=== PATIENT | male | born 1965 | race African-American/Black ===

== ENCOUNTER 2021-06-19 11:28 | Inpatient (IN) | payer SELFPAY ==
--- OUTSIDE RECORDS SUMMARY | 2021-06-19 11:30 | XMS REPORT | Continuity of Care Document ---
:1965 Author Organization [facility] t Address [address] [place] [address] [place] [address] Care Team Providers Name Role Phone Unavailable Unavailable Unavailable Problems This patient has no known problems. Allergies, Adverse Reactions, Alerts Allergy Allergy Status Severity Reaction(s) Onset Inactive Treating Comm ents Source Name Type Date Date Clinician NO KNOWN Drug Active [facility] ALLERGIE Class [facility] Medications This patient has no known medications. Procedures This patient has no known procedures. Encounters Start End Encounter Admission Attending Care Care Encounter Source Date/Time Date/Time Type Type Clinicians Facility Department ID 2020-12-04 2020-12-04 [id number] 06 [facility] 13:40:00 13:40:00 [facility] Results This patient has no known results.
[2021-06-19 12:51] LABS: Lymphocytes % 24.3 % (15.3-44.8); MPV 9.7 fL (7.6-11.3)
[2021-06-19 12:54] LABS: Protime INR 1.03
--- NOTE | 2021-06-19 13:00 | RAD REPORT ---
EXAM DESCRIPTION: RAD - Chest Single View - 06/19/2021 12:53 pm CLINICAL HISTORY: dizziness Chest pain. COMPARISON: No comparisons FINDINGS: Portable technique limits examination quality. The lungs are grossly clear. The heart is mildly enlarged. No displaced fractures.
[2021-06-19 13:02] LABS: Urine Blood Trace-intact (Negative); Urine Glucose Negative (Negative); Urine Protein 2+ (Negative); Urine pH 8.5 (5.0-7.0)
[2021-06-19] MEDS ORDERED: ONDANSETRON 4 MG/2 ML VIAL ONE (13:05)
[2021-06-19] MEDS ORDERED: NA CHLORIDE 0.9% 1,000 ML ONE (13:05)
[2021-06-19 13:16] LABS: ALT/SGPT 69 U/L (12-78); AST/SGOT 74 U/L (15-37); Albumin 3.1 g/dL (3.4-5.0); Alkaline Phosphatase 69 U/L (45-117); BUN Blood Urea Nitrogen 11 mg/dL (7-18); Bicarbonate 28 mmol/L (21-32); Bilirubin Direct 0.2 mg/dL (0-0.2); Bilirubin Total 0.6 mg/dL (0.2-1.0); Glucose Level 97 mg/dL (74-106); Magnesium 2.3 mg/dL (1.8-2.4); NT PRO-BNP 336 pg/mL (<125); Potassium 4.4 mmol/L (3.5-5.1); Protein, Total 8.4 g/dL (6.4-8.2); Sodium Level 138 mmol/L (136-145)
[2021-06-19 13:29] LABS: Urine Bacteria <20 /HPF (NONE SEEN); Urine RBC <5 /HPF (NONE SEEN)
[2021-06-19] MEDS ORDERED: MECLIZINE HCL 12.5 MG TAB ONE (13:35)
--- NOTE | 2021-06-19 14:02 | RAD REPORT ---
EXAM DESCRIPTION: CT - Head Brain Wo Cont - 06/19/2021 1:42 pm CLINICAL HISTORY: DIZZINESS Headache, drowsiness COMPARISON: No comparisons TECHNIQUE: All CT scans are performed using dose optimization technique as appropriate and may inclu de automated exposure control or mA/KV adjustment according to patient size. FINDINGS: No intracranial hemorrhage, hydrocephalus or extra-axial fluid collection.No areas of brai n edema or evidence of midline shift. The paranasal sinuses and mastoids are clear. The calvarium is intact. IMPRESSION: No acute intracranial abnormality.
--- NOTE | 2021-06-19 14:10 | EDPHYS ---
Physician Documentation [facility] Name: Srikanth Alexander Age: 56 yrs Sex: Male : 1965 Arrival Date: 06/19/2021 Time: 11:32 Bed 25 Private MD: None, None ED Physician Young Palafox HPI: 06/19 12:45 This 56 yrs old Black Male presents to ER via Ambulatory with complaints of Dizziness. cp 12:45 The patient presents with dizziness, lightheadedness. Onset: The symptoms/episode cp began/occurred today. Context: nausea and vomiting yesterday. Associated signs and symptoms: Pertinent negatives: abdominal pain, chest pain, combativeness, confusion, diaphoresis, focal weakness, palpitations, shortness of breath, syncope. Patient's baseline: Neuro: alert and fully oriented, Motor: no deficits, Ambulation: walks without assistance, Speech: normal. Historical: - Allergies: 11:35 No Known Allergies; jd3 - Home Meds: 11:35 None [Active]; jd3 - PMHx: 11:35 None; jd3 - PSHx: 11:35 Appendectomy; left ankle; jd3 - Immunization history:: Adult Immunizations up to date, Client reports receiving the 2nd dose of the Covid vaccine, Flu vaccine is not up to date. - Social history:: Smoking status: Patient reports the use of cigarette tobacco products, smokes one-half pack cigarettes per day. ROS: 12:50 Eyes: Negative for injury, pain, redness, and discharge. cp 12:50 Constitutional: Negative for fever, poor PO intake. 12:50 Cardiovascular: Negative for chest pain. 12:50 Respiratory: Negative for cough, shortness of breath, wheezing. 12:50 Abdomen/GI: Positive for nausea and vomiting, Negative for abdominal pain, diarrhea, constipation. 12:50 Neuro: Positive for dizziness, Negative for altered mental status, headache, loss of consciousness, syncope, weakness. 12:50 All other systems are negative. Exam: 12:55 Constitutional: The patient appears in no acute distress, alert, awake, cp non-diaphoretic, non-toxic, well developed, well nourished. 12:55 Head/Face: Normocephalic, atraumatic. cp 12:55 Eyes: Periorbital structures: appear normal, Pupils: equal, round, and reactive to light and accomodation, Extraocular movements: intact throughout, Conjunctiva: normal, no exudate, no injection, Lids and lashes: appear normal, bilaterally. 12:55 ENT: External ear(s): are unremarkable, Nose: is normal, Mouth: Lips: moist, Oral mucosa: pink and intact, moist, Posterior pharynx: Airway: no evidence of obstruction, patent. 12:55 Neck: ROM/movement: is normal, is supple, without pain, no range of motions limitations. 12:55 Chest/axilla: Inspection: normal, Palpation: is normal, no crepitus, no tenderness. 12:55 Cardiovascular: Rate: normal, Rhythm: regular, Edema: is not appreciated, JVD: is not appreciated. 12:55 Respiratory: the patient does not display signs of respiratory distress, Respirations: normal, no use of accessory muscles, no retractions, labored breathing, is not present, Breath sounds: are clear throughout, no decreased breath sounds, no stridor, no wheezing. 12:55 Abdomen/GI: Inspection: abdomen appears normal, Bowel sounds: active, all quadrants, Palpation: abdomen is soft and non-tender, in all quadrants. 12:55 Back: pain, is absent, ROM is normal. 12:55 Neuro: Orientation: to person, place \\T\\ time. Mentation: is normal, Cerebellar function: is grossly normal, Motor: moves all fours, strength is normal, Sensation: is normal. 13:20 ECG was reviewed by the Attending Physician. cp Vital Signs: 11:36 BP 167 / 87; Pulse 75; Resp 18 S; Temp 97.5(TE); Pulse Ox 99% on R/A; Weight 74.84 kg jd3 (R); Height 5 ft. 7 in. (170.18 cm) (R); Pain 0/10; 13:23 BP 156 / 86; Pulse 55; Resp 18; Pulse Ox 100% on R/A; ic1 15:44 BP 157 / 94; Pulse 63; Resp 16; Pulse Ox 98% on R/A; ic1 18:27 BP 154 / 90; Pulse 65; Resp 18; Pulse Ox 100% on R/A; ic1 11:36 Body Mass Index 25.84 (74.84 kg, 170.18 cm) jd3 MDM: 12:31 Patient medically screened. 14:10 Data reviewed: vital signs, nurses notes, lab test result(s), EKG, radiologic studies, cp CT scan, plain films. 14:10 Test interpretation: by ED physician or midlevel provider: ECG, plain radiologic cp studies. Physician consultation: Joseph Morse was called at 14:05, was contacted at 14:05, regarding admission, to the telemetry unit. patient's condition. 06/19 12:39 Order name: Basic Metabolic Panel 06/19 12:39 Order name: CBC with Diff 06/19 12:39 Order name: LFT's; Complete Time: 13:26 06/19 13:26 Interpretation: Normal except: AST 74; TP 8.4; ALB 3.1; GLOB 5.3; A/G 0.6. 06/19 12:39 Order name: Magnesium; Complete Time: 13:26 06/19 12:39 Order name: NT PRO-BNP; Complete Time: 13:26 06/19 12:39 Order name: PT-INR; Complete Time: 13:07 06/19 12:39 Order name: Troponin HS; Complete Time: 13:26 06/19 13:26 Interpretation: Abnormal: Troponin HS 142.70. 06/19 12:39 Order name: Urine Microscopic Only; Complete Time: 14:03 06/19 12:39 Order name: Basic Metabolic Panel; Complete Time: 13:26 [facility] 06/19 12:39 Order name: CBC with Automated Diff; Complete Time: 13:07 [facility] 06/19 13:02 Order name: Urine Dipstick-Ancillary; Complete Time: 13:07 [facility] 06/19 13:28 Order name: COVID-19 SARS RT PCR (Document "Date of Onset" if Symptomatic) 06/20 04:04 Order name: Lipid Profile [facility] 06/20 04:04 Order name: Basic Metabolic Panel [facility] 06/19 12:39 Order name: XRAY Chest (1 view); Complete Time: 13:07 06/19 12:39 Order name: EKG; Complete Time: 12:39 06/19 12:39 Order name: EKG - Nurse/Tech; Complete Time: 07:03 06/19 12:39 Order name: IV Saline Lock; Complete Time: 12:50 cp 06/19 12:39 Order name: Labs collected and sent; Complete Time: 12:50 cp 06/19 12:39 Order name: O2 Per Protocol; Complete Time: 12:49 cp 06/19 13:27 Order name: CT Head Brain wo Cont; Complete Time: 14:03 cp 06/20 04:13 Order name: CBC with Automated Diff EDMS 06/20 09:04 Order name: Diet Heart Healthy; Complete Time: 09:05 ss 06/20 10:13 Order name: Troponin High Sensitivity EDMS 06/19 12:39 Order name: O2 Sat Monitoring; Complete Time: 12:49 cp 06/19 12:39 Order name: Urine Dipstick-Ancillary (obtain specimen); Complete Time: 13:14 cp EC:20 Rate is 57 beats/min. Rhythm is regular. DC interval is normal. QRS interval is cp prolonged at 138 msec. QT interval is normal. T waves are Inverted in lead aVR. Interpreted by me. Reviewed by me. Administered Medications: 13:16 Drug: Zofran (Ondansetron) 4 mg Route: IVP; Site: left antecubital; ic1 13:16 Drug: NS 0.9% 1000 ml Route: IV; Rate: 1 bolus; Site: left antecubital; ic1 13:37 Drug: Meclizine 25 mg Route: PO; ic1 14:08 CANCELLED (Physician Discretion): Lovenox (enoxaparin) 1 mg/kg Sub-Q once cp 14:28 Drug: Aspirin Chewable Tablet 324 mg Route: PO; ic1 Disposition Summary: 06/19/21 14:09 Hospitalization Ordered Hospitalization Status: Observation cp Provider: Joseph Morse cp Condition: Stable cp Problem: new cp Symptoms: have improved cp Bed/Room Type: Standard cp Location: Telemetry/MedSurg (Inpatient)(06/20/21 15:19) Room Assignment: 216(06/20/21 15:19) Diagnosis - Dizziness and giddiness cp - Nausea with vomiting, unspecified cp Forms: - Medication Reconciliation Form cp - SBAR form cp Addendum: 06/26/2021 18:57 Co-signature as Attending Physician, Young aquino a2 Signatures: Dispatcher [employer] EDMuna Roberts Alena, RN RN ss Efren Gonzalez PA PA cp Sree Brito RN RN jd3 Young Palafox MD MD ma2 Rachelle Vega RN RN ic1 Corrections: (The following items were deleted from the chart) 06/19 11:36 11:35 PSHx: None; jd3 jd3 14:08 14:03 Lovenox (enoxaparin) 1 mg/kg Sub-Q once ordered. cp cp 17:12 14:09 Telemetry/MedSurg (observation) cp bd 17:12 14:09 cp bd 17:48 14:07 ECG was reviewed by the Attending Physician. cp cp 06/20 07:03 06/19 12:39 Cardiac monitoring ordered. cp ll3 06/20 15:19 06/19 17:12 [facility] ER HOLD bd 06/20 15:19 06/19 17:12 ERHOLD- bd 06/21 17:51 06/19 13:20 ECG was reviewed by the Attending Physician. cp cp 06/21 17:51 06/19 13:20 Rate is 57 beats/min. Rhythm is regular. DC interval is normal. QRS cp interval is prolonged at 138 msec. QT interval is normal. T waves are Inverted in lead aVR. Interpreted by me. Reviewed by me. cp 06/21 17:53 06/20 12:45 This 56 yrs old Black Male presents to ER via Ambulatory with complaints of cp Dizziness. cp 06/21 16:06/20 12:50 Constitutional: Negative for fever, poor PO intake, cp cp 06/21 16:54 06/20 12:50 Cardiovascular: Negative for chest pain, cp cp 06/21 16:54 06/20 12:50 Respiratory: Negative for cough, shortness of breath, wheezing, cp cp 06/21 17:54 06/20 12:50 Abdomen/GI: Positive for nausea and vomiting, Negative for abdominal pain, cp diarrhea, constipation, cp 06/21 16:06/20 12:50 Neuro: Positive for dizziness, Negative for altered mental status, cp headache, loss of consciousness, syncope, weakness, cp 06/21 16:54 06/20 12:50 Eyes: Negative for injury, pain, redness, and discharge, cp cp 06/21 16:06/20 12:50 All other systems are negative, cp cp 06/21 17:06/20 13:20 Rate is 57 beats/min. Rhythm is regular. DC interval is normal. QRS cp interval is prolonged at 138 msec. QT interval is normal. T waves are Inverted in lead aVR. Interpreted by me. Reviewed by me. cp 06/21 17:06/20 13:20 ECG was reviewed by the Attending Physician. cp cp
--- NOTE | 2021-06-19 14:10 | ER ---
Nurse's Notes [facility] Name: Srikanth Alexander Age: 56 yrs Sex: Male : 1965 Arrival Date: 06/19/2021 Time: 11:32 Bed 25 Private MD: None, None Diagnosis: Dizziness and giddiness;Nausea with vomiting, unspecified Presentation: 06/19 11:34 Chief complaint: Patient states: "I started with vomiting yesterday and having some jd3 dizziness today. it is off and on since yesterday.". Coronavirus screen: At this time, the client does not indicate any symptoms associated with coronavirus-19. Ebola Screen: No symptoms or risks identified at this time. Initial Sepsis Screen: Does the patient meet any 2 criteria? No. Patient's initial sepsis screen is negative. Does the patient have a suspected source of infection? No. Patient's initial sepsis screen is negative. Risk Assessment: Do you want to hurt yourself or someone else? Patient reports no desire to harm self or others. Onset of symptoms was June 19, 2021. 11:34 Method Of Arrival: Ambulatory jd3 11:34 Acuity: MARVA 3 jd3 Historical: - Allergies: 11:35 No Known Allergies; jd3 - Home Meds: 11:35 None [Active]; jd3 - PMHx: 11:35 None; jd3 - PSHx: 11:35 Appendectomy; left ankle; jd3 - Immunization history:: Adult Immunizations up to date, Client reports receiving the 2nd dose of the Covid vaccine, Flu vaccine is not up to date. - Social history:: Smoking status: Patient reports the use of cigarette tobacco products, smokes one-half pack cigarettes per day. Screenin:34 Abuse screen: Denies threats or abuse. Denies injuries from another. Nutritional ic1 screening: No deficits noted. Tuberculosis screening: No symptoms or risk factors identified. Fall Risk None identified. Assessment: 12:34 General: Appears in no apparent distress. comfortable, Behavior is calm, cooperative. ic1 Pain: Denies pain. Neuro: No deficits noted. Cardiovascular: No deficits noted. Respiratory: No deficits noted. GI: Reports nausea, vomiting, Patient currently denies abdominal pain, constipation, diarrhea. : No deficits noted. EENT: No deficits noted. Derm: No deficits noted. Musculoskeletal: No deficits noted. 15:46 Reassessment: Patient appears in no apparent distress at this time. No changes from ic1 previously documented assessment. Patient is alert, oriented x 3, equal unlabored respirations, skin warm/dry/pink. Hospitalist at pt's bedside. Vital Signs: 11:36 BP 167 / 87; Pulse 75; Resp 18 S; Temp 97.5(TE); Pulse Ox 99% on R/A; Weight 74.84 kg jd3 (R); Height 5 ft. 7 in. (170.18 cm) (R); Pain 0/10; 13:23 BP 156 / 86; Pulse 55; Resp 18; Pulse Ox 100% on R/A; ic1 15:44 BP 157 / 94; Pulse 63; Resp 16; Pulse Ox 98% on R/A; ic1 18:27 BP 154 / 90; Pulse 65; Resp 18; Pulse Ox 100% on R/A; ic1 11:36 Body Mass Index 25.84 (74.84 kg, 170.18 cm) jd3 ED Course: 11:32 Patient arrived in ED. as 11:32 None, None is Private Physician. as 11:35 Triage completed. jd3 11:36 Arm band placed on. jd3 12:21 Efren Gonzalez PA is PHCP. cp 12:21 Young Palafox MD is Attending Physician. cp 12:27 Rachelle Vega, KALEIGH is Primary Nurse. ic1 12:34 Patient has correct armband on for positive identification. Bed in low position. Call ic1 light in reach. Side rails up X2. 12:34 Inserted saline lock: 20 gauge in left antecubital area, using aseptic technique. Blood ic1 collected. 12:49 Basic Metabolic Panel Sent. ic1 12:49 CBC with Automated Diff Sent. ic1 12:49 Troponin HS Sent. ic1 12:49 NT PRO-BNP Sent. ic1 12:49 Magnesium Sent. ic1 12:49 LFT's Sent. ic1 12:53 XRAY Chest (1 view) In Process Unspecified. EDMS 13:14 Urine Microscopic Only Sent. ic1 13:42 CT Head Brain wo Cont In Process Unspecified. EDMS 14:09 Joseph Morse is Hospitalizing Provider. cp 18:27 Pulse ox on. NIBP on. ic1 18:32 Door closed. Visitors limited. Lights dimmed. Warm blanket given. Diet tray given. ic1 06/20 07:03 Basic Metabolic Panel Sent. ll3 07:03 CBC with Diff Sent. ll3 Administered Medications: 06/19 13:16 Drug: Zofran (Ondansetron) 4 mg Route: IVP; Site: left antecubital; ic1 13:16 Drug: NS 0.9% 1000 ml Route: IV; Rate: 1 bolus; Site: left antecubital; ic1 13:37 Drug: Meclizine 25 mg Route: PO; ic1 14:08 CANCELLED (Physician Discretion): Lovenox (enoxaparin) 1 mg/kg Sub-Q once cp 14:28 Drug: Aspirin Chewable Tablet 324 mg Route: PO; ic1 Outcome: 14:09 Decision to Hospitalize by Provider. cp 06/20 18:08 Patient left the ED. ss Signatures: Dispatcher [employer] EDME Linda Ferguson Shelby, RN RN Efren Gonzalez PA PA cp Sree Brito RN RN jSalvatore Perez RN RN ll3 Rachelle Vega RN RN ic1 Corrections: (The following items were deleted from the chart) 06/19 11:36 11:35 PSHx: None; jd3 jd3 11:37 11:34 Chief complaint: Patient states: "I started with vomiting yesterday and having jd3 some dizziness today. it is off and on." jd3 18:33 18:27 Door closed. Visitors limited. Lights dimmed. Warm blanket given. Diet tray ic1 given. PO fluids given. Pt moved into a stretcher for comfort. States she feel much better after repositioning. ic1
[2021-06-19] MEDS ORDERED: ASPIRIN 81 MG CHEWABLE TABLET ONE (14:13)
--- NOTE | 2021-06-19 17:18 | P.HP ---
Certification for Inpatient Patient admitted to: Observation With expected LOS: <2 Midnights Practitioner: I am a practitioner with admitting privileges, knowledge of patient current condition, hospital course, and medical plan of care. Services: Services provided to patient in accordance with Admission requirements found in Title 42 Section 412.3 of the Code of Federal Regulations Patient History Date of Service: 06/19/21 Reason for admission: Nausea and vomiting History of Present Illness: -year-old gentleman with no known past medical history presented to the emergency department with a complaint of nausea and vomiting which started last night. Patient states he ate a meal of noodles and pork chops at his friend's house. Several hours later experienced nausea and he started vomiting. He vomited a few times yesterday and a couple of times today at work. He presented to the emergency department where blood work is unremarkable except elevated troponin. Patient reports recent ED fatigability over the past few weeks. EKG shows no ischemic changes. Chest x-ray shows no acute changes. His sister has a history of carotid artery disease, no known heart disease in the family. He states that the nausea and vomiting have resolved. Patient is hospitalized for further management. - Past Medical/Surgical History -: None -: Ankle surgery - Social History Smoking Status: Current every day smoker Alcohol use: Yes CD- Drugs: No Place of Residence: Home Review of Systems Other: Patient denied any diarrhea, he denied any abdominal pain, he denied any palpitation, he denied shortness of breath at rest. Except as documented, all other systems reviewed and negative. Physical Examination - Physical Exam General: Alert, In no apparent distress, Oriented x3 HEENT: PERRLA, Mucous membr. moist/pink, Sclerae nonicteric Neck: Supple, JVD not distended Respiratory: Clear to auscultation bilaterally, Normal air movement Cardiovascular: No edema, Regular rate/rhythm, Normal S1 S2, No murmurs Capillary refill: <2 Seconds Gastrointestinal: Normal bowel sounds, Soft and benign, Non-distended, No tenderness Musculoskeletal: No swelling, No tenderness Integumentary: No rashes, No erythema, No cyanosis Neurological: Normal speech, Normal strength at 5/5 x4 extr, Cranial nerves 3-12 intact Lymphatics: No axilla or inguinal lymphadenopathy - Studies Laboratory Data (last 24 hrs) 06/19/21 12:41: PT 11.9, INR 1.03 06/19/21 12:41: WBC 4.00 L, Hgb 14.3, Hct 44.0, Plt Count 177 06/19/21 12:41: Sodium 138, Potassium 4.4, BUN 11, Creatinine 0.96, Glucose 97, Magnesium 2.3, Total Bilirubin 0.6, AST 74 H, ALT 69, Alkaline Phosphatase 69 Assessment and Plan - Problems (Diagnosis) (1) Elevated troponin Current Visit: Yes Status: Acute (2) Nausea and vomiting Current Visit: Yes Status: Acute (3) Food poisoning Current Visit: Yes Status: Acute - Plan Place patient under observation. Continue to trend troponin Will cover with full dose Lovenox. Obtain echocardiogram Cardiology consult. Patient may benefit for stress test. Antiemetics as needed for nausea and vomiting. Hydrate with IV fluid. Monitor and optimize electrolytes. - Advance Directives Does patient have a Living Will: No Does patient have a Durable POA for Healthcare: No
[2021-06-20] MEDS ORDERED: NITROGLYCERIN 0.4 MG/TAB SL PRN (02:45)
[2021-06-20] MEDS: NA CHLORIDE 0.9% 1,000 ML IV SCH ×2 (02:45→16:05)
[2021-06-20] MEDS: METOPROLOL TAR 50 MG TAB PO SCH ×3 (02:45→21:32)
[2021-06-20] MEDS ORDERED: ENOXAPARIN 80 MG/0.8 ML SQ SCH (02:45)
[2021-06-20] MEDS ORDERED: ENOXAPARIN 80 MG/0.8 ML SQ ONE ×3 (03:00→17:26)
[2021-06-20] MEDS ORDERED: METOPROLOL TAR 25 MG TAB ONE ×2 (03:34→09:22)
[2021-06-20] MEDS ORDERED: NA CHLORIDE 0.9% 1,000 ML ONE (03:35)
[2021-06-20 03:51] LABS: Absolute Lymphocytes (CBC) 1.3 K/uL (0.7-4.9); Hematocrit 41.2 % (39.6-49.0); Lymphocytes % 32.7 % (15.3-44.8); MPV 9.6 fL (7.6-11.3); RBC Red Blood Cell Count 4.38 M/uL (4.33-5.43)
[2021-06-20 04:04] LABS: BUN Blood Urea Nitrogen 15 mg/dL (7-18); Bicarbonate 27 mmol/L (21-32); Glucose Level 102 mg/dL (74-106); Potassium 4.1 mmol/L (3.5-5.1); Sodium Level 140 mmol/L (136-145)
[2021-06-20] MEDS: ASPIRIN EC 81 MG TAB PO SCH (09:00)
[2021-06-20] MEDS ORDERED: ASPIRIN 81 MG CHEWABLE TABLET ONE (09:22)
--- NOTE | 2021-06-20 14:23 | ECHO ---
HEIGHT: 5 ft 7 in WEIGHT: 164 lb 15.903 oz DATE OF STUDY: 06/20/[address]: nadeen diza 2-DIMENSIONAL: YES M.MODE: YES DOPPLER: YES COLOR FLOW: YES TDS: PORTABLE: DEFINITY: BUBBLE STUDY: DIAGNOSIS: ELEVATED TROPONIN CARDIAC HISTORY: CATHERIZATION: SURGERY: PROSTHETIC VALVE: PACEMAKER: MEASUREMENTS (cm) DIASTOLIC (NORMALS) SYSTOLIC (NORMALS) IVSd 1.1 (0.6-1.2) LA Diam 4.2 (1.9-4.0) LVEF 55-60% LVIDd 5.7 (3.5-5.7) LVIDs 4.1 (2.0-3.5) %FS 28% LVPWd 1.0 (0.6-1.2) Ao Diam 2.8 (2.0-3.7) 2 DIMENSIONAL ASSESSMENT: RIGHT ATRIUM: NORMAL LEFT ATRIUM: ENLARGED RIGHT VENTRICLE: NORMAL LEFT VENTRICLE: NORMAL TRICUSPID VALVE: MODERATE TRICUSPID REGURGITATION MITRAL VALVE: MODERATE MITRAL REGURGITATION PULMONIC VALVE: MILD PULMONARY INSUFFIENCY AORTIC VALVE: NORMAL PERICARDIAL EFFUSION: NONE AORTIC ROOT: NORMAL LEFT VENTRICULAR WALL MOTION: NORMAL DOPPLER/COLOR FLOW: SEE BELOW COMMENTS: NORMAL LEFT VENTRICULAR EJECTION FRACTION 55-60% WITH NORMAL WALL MOTION. MODERATE TRICUSPID REGURGITATION. RIGHT VENTRICULAR SYSTOLIC PRESSURE OF 40-45 mmHg. MODERATE TO SEVERE MITRAL REGURGITATION. LEFT ATRIAL ENLARGEMENT. TECHNOLOGIST: MICHELLE MARTINEZ
[2021-06-20] MEDS: ENOXAPARIN 80 MG/0.8 ML SQ SCH (17:25)
--- NOTE | 2021-06-20 17:53 | P.PN ---
Subjective Date of Service: 06/20/21 Chief Complaint: Nausea and vomiting No new complaint. Troponin trended down. He denies any nausea. Physical Examination - Vital Signs Temperature: 98 F Blood Pressure: 152/82 Pulse: 56 Respirations: 19 Pulse Ox (%): 100 - Physical Exam General: Alert, In no apparent distress, Oriented x3 HEENT: Mucous membr. moist/pink, Sclerae nonicteric Neck: JVD not distended Respiratory: Clear to auscultation bilaterally, Normal air movement Cardiovascular: No edema, Regular rate/rhythm, Normal S1 S2 Gastrointestinal: Normal bowel sounds, Soft and benign, Non-distended, No tenderness Musculoskeletal: No swelling, No erythema Integumentary: No rashes, No erythema, No cyanosis Neurological: Normal strength at 5/5 x4 extr, Cranial nerves 3-12 intact - Studies Laboratory Data (last 24 hrs) 06/20/21 03:18: Sodium 140, Potassium 4.1, BUN 15, Creatinine 0.97, Glucose 102 06/20/21 03:18: WBC 3.80 L, Hgb 13.5 L, Hct 41.2, Plt Count 159 06/20/21 03:18: Triglycerides 91, Cholesterol 162, HDL Cholesterol 68 H, Cholesterol/HDL Ratio 2.38 Assessment And Plan - Current Problems (Diagnosis) (1) Elevated troponin Current Visit: Yes Status: Acute (2) Nausea and vomiting Current Visit: Yes Status: Acute (3) Food poisoning Current Visit: Yes Status: Acute - Plan Troponin trended down. On full dose Lovenox for possible NSTEMI given no known past medical history. Echocardiogram demonstrates moderate to severe mitral regurgitation. Awaiting Cardiology input. Continue metoprolol and aspirin. Discontinue IV fluid. Monitor and optimize electrolytes.
--- NOTE | 2021-06-20 19:05 | CON ---
Date of Consultation: 06/20/2021 Reason For Consultation: Chest pain. History Of Present Illness: This is a middle-aged male, who presented to the emergency room with cl sea and vomiting as well as having chest pain on activities and increased fatigue and tiredness. At present time completely asymptomatic. No chest pain. Past Medical History: None. Medications: None. Allergies: NO KNOWN DRUG ALLERGIES. Family History: No mature coronary artery disease or cancer. Social History: He is 1 pack per day smoker. Does not drink or use any drugs. Review of Systems: All systems reviewed and they were negative except as mentioned in the HPI. Physical Examination: Vital Signs: Reviewed. Head and Neck Exam: Pupils are equal and reactive to light. Intact eye movements. No JVD. No cerv ical lymphadenopathy. Neck is supple. Thyroid is not enlarged. Lungs: Clear to auscultation. No rhonchi, rales, or crackles. No accessory muscle use. Heart: Regular rate and rhythm. No extra sounds. Abdomen: Soft and nontender. Bowel sounds positive. No organomegaly. No masses or hernia. No rig idity or rebound. Extremities: No edema, clubbing, or cyanosis. Intact pulses. Skin: No rash. Neurologic: Alert, awake, and oriented x3. No acute focal deficits appreciated. Investigations: White blood cell count is 3.8, hemoglobin 13.5. His creatinine is 0.9. Troponin in itially 142 and then down to 59. Assessment And Plan: 1.Elevated troponin with chest pain. This could be an indication of [id number] myocardial inf arction. Echo was done, showed normal ejection fraction, no wall motion abnormalities. I recommend exercise nuclear stress test to be done to further evaluate the need to do coronary angiogram. 2.Dizziness. Blood pressure is good. Echo is good. We will monitor and we will do ischemia workup as above with a stress test. SR/MODL Voice ID: [id number] Report ID: [id number]
[2021-06-21] MEDS ORDERED: HYDRALAZINE HCL 20 MG/ML VIAL IV PRN (01:14)
[2021-06-21] MEDS: ENOXAPARIN 80 MG/0.8 ML SQ SCH (05:18)
[2021-06-21] MEDS ORDERED: REGADENOSON 0.4 MG/5 ML SYR IV ONE (08:26)
[2021-06-21] MEDS: ASPIRIN EC 81 MG TAB PO SCH (09:00)
[2021-06-21] MEDS: METOPROLOL TAR 50 MG TAB PO SCH ×2 (09:00→20:56)
--- NOTE | 2021-06-21 10:29 | RAD REPORT ---
EXAM DESCRIPTION: NM - Rest Stress Cardiac Imaging - 06/21/2021 10:22 am CLINICAL HISTORY: Elevated troponin Chest pain. COMPARISON: No comparisons TECHNIQUE: The patient was administered approximately 10mCi of Tc 99m Sestamibi prior to resting SPE CT imaging of the heart. The patient was then administered approximately 30 mCi of Tc 99m Sestamibi f ollowing exercise or pharmacologic stress. Multiplanar SPECT images were reviewed. FINDINGS: Moderate sized area of moderate stress-induced ischemia is seen along the lateral wall. Sm all amount of scar tissue is suspected LV apex. The end diastolic volume is 213 ml, the end systolic volume is 132 ml, and the ejection fraction is 3 8 %. IMPRESSION: Moderate stress-induced ischemia involving the lateral wall suspected.
--- NOTE | 2021-06-21 15:01 | P.PN ---
Subjective Date of Service: 06/21/21 Chief Complaint: Nausea and vomiting Patient has no complaint. Nuclear stress test done today shows moderate stress-induced ischemia. Physical Examination - Vital Signs Temperature: 97.5 F Blood Pressure: 167/74 Pulse: 59 Respirations: 18 Pulse Ox (%): 98 - Physical Exam General: Alert, In no apparent distress, Oriented x3 HEENT: Mucous membr. moist/pink Neck: JVD not distended Respiratory: Clear to auscultation bilaterally, Normal air movement Cardiovascular: No edema, Regular rate/rhythm, Normal S1 S2 Gastrointestinal: Soft and benign, Non-distended Musculoskeletal: No swelling Integumentary: No rashes Neurological: Normal strength at 5/5 x4 extr Assessment And Plan - Current Problems (Diagnosis) (1) Elevated troponin Current Visit: Yes Status: Acute (2) Nausea and vomiting Current Visit: Yes Status: Acute (3) Food poisoning Current Visit: Yes Status: Acute (4) Coronary artery disease Current Visit: Yes Status: Acute - Plan Echocardiogram demonstrates moderate to severe mitral regurgitation. Nuclear stress test report moderate stress-induced ischemia. Dr. Livingston informed of the stress test result. Keep n.p.o. in case cardiac catheterization may be done today. Continue metoprolol and aspirin. Monitor and optimize electrolytes.
[2021-06-22] MEDS: METOPROLOL TAR 50 MG TAB PO SCH ×2 (09:00→21:21)
[2021-06-22] MEDS: ASPIRIN EC 81 MG TAB PO SCH (09:41)
--- NOTE | 2021-06-22 12:28 | P.PN ---
Subjective Date of Service: 06/22/21 Chief Complaint: Nausea and vomiting Patient has no complaint. Physical Examination - Vital Signs Temperature: 98.3 F Blood Pressure: 129/72 Pulse: 55 Respirations: 16 Pulse Ox (%): 100 - Physical Exam General: In no apparent distress, Oriented x3 HEENT: Mucous membr. moist/pink Neck: JVD not distended Respiratory: Clear to auscultation bilaterally, Normal air movement Cardiovascular: No edema, Regular rate/rhythm, Normal S1 S2 Gastrointestinal: Soft and benign, Non-distended Musculoskeletal: No swelling Integumentary: No rashes, No erythema Neurological: Normal strength at 5/5 x4 extr Assessment And Plan - Current Problems (Diagnosis) (1) Elevated troponin Current Visit: Yes Status: Acute (2) Nausea and vomiting Current Visit: Yes Status: Acute (3) Food poisoning Current Visit: Yes Status: Acute (4) Coronary artery disease Current Visit: Yes Status: Acute - Plan Echocardiogram demonstrates moderate to severe mitral regurgitation. Nuclear stress test report moderate stress-induced ischemia. Dr. Livingston informed of the stress test result. Dr. Livingston recommend cardiac catheterization on Thursday. Patient is willing to stay till Thursday to have the procedure done. Continue metoprolol and aspirin. Resume full dose Lovenox. Statins. Monitor and optimize electrolytes.
[2021-06-22] MEDS: ENOXAPARIN 80 MG/0.8 ML SQ SCH ×2 (13:19→21:22)
[2021-06-22] MEDS: ATORVASTATIN 20 MG TAB PO SCH (21:22)
--- NOTE | 2021-06-22 21:30 | PN ---
Date of Progress Note: 06/22/2021 Subjective: Seen by bedside, he is pain free. As patient had elevated troponin on presentation and stress test was done and showed a moderate size of stress-induced ischemia along the lateral wall. Review of Systems: No chest pain, shortness of breath, orthopnea, cough. No nausea, vomiting, diarrhea. No abdominal p ain. All other systems reviewed, they were negative. Objective: Vital Signs: Reviewed. Head and Neck: Pupils are equal, reactive to light. Intact eye movements. No JVD. No cervical lym phadenopathy. Neck supple. Thyroid is not enlarged. Lungs: Clear to auscultation bilaterally. No rhonchi, rales, or crackles. No accessory muscle use. Heart: Regular rate and rhythm. No extra sounds. Abdomen: Soft, nontender. Bowel sounds positive. No organomegaly. No masses or hernia. No rigidi ty or rebound. Extremities: No edema, clubbing, cyanosis. Intact pulses. Skin: No rashes. Neurologic: Alert, awake, oriented x3. No acute focal deficits appreciated. Investigations: Last troponin was 59. Assessment And Recommendations: Akj-AY-clwoonfgy myocardial infarction, positive stress test with mo derate size ischemia on lateral wall suggestive of possible LAD stenosis. Recommend to continue anticoagulation with Lovenox, aspirin for now, and plan for coronary angiogram on Thursday. T he patient agreed to the plan. /JUVE Voice ID: [id number] Report ID: [id number]
[2021-06-23 04:34] LABS: Absolute Lymphocytes (CBC) 1.4 K/uL (0.7-4.9); Hematocrit 40.5 % (39.6-49.0); Lymphocytes % 30.9 % (15.3-44.8); MPV 9.9 fL (7.6-11.3); RBC Red Blood Cell Count 4.31 M/uL (4.33-5.43)
[2021-06-23 04:47] LABS: BUN Blood Urea Nitrogen 12 mg/dL (7-18); Bicarbonate 28 mmol/L (21-32); Glucose Level 99 mg/dL (74-106); Potassium 4.3 mmol/L (3.5-5.1); Sodium Level 137 mmol/L (136-145)
[2021-06-23] MEDS: ASPIRIN EC 81 MG TAB PO SCH (08:42)
[2021-06-23] MEDS: METOPROLOL TAR 50 MG TAB PO SCH ×3 (08:42→21:47)
[2021-06-23] MEDS: ENOXAPARIN 80 MG/0.8 ML SQ SCH ×2 (08:42→21:44)
--- NOTE | 2021-06-23 11:04 | PN ---
Date of Progress Note: 06/23/2021 Subjective: Seen at bedside, doing well. No chest pain. Review of Systems: No chest pain, shortness of breath, orthopnea, cough. No nausea, vomiting, diarrhea. No abdominal p ain. No dysuria, pyuria, or urgency. All other systems reviewed and are negative. Physical Examination: Vital Signs: Reviewed. Head and Neck: Pupils are equal, reactive to light. Intact eye movements. No JVD. No cervical lym phadenopathy. Neck is supple. Thyroid is not enlarged. Lungs: Clear to auscultation bilaterally. No rhonchi, rales, or crackles. No accessory muscle use. Heart: Regular rate and rhythm. No extra sounds. Abdomen: Soft, nontender. Bowel sounds positive. No organomegaly. No masses or hernia. No rigidi ty or rebound. Extremities: No edema, clubbing, or cyanosis. Intact pulses. Skin: No rashes. Neurologic: Alert, awake, oriented x3. No acute focal deficits appreciated. Investigations: Labs were reviewed. Assessment And Recommendations: 1.Unstable angina versus non-ST elevation myocardial infarction. Keep n.p.o. past midnight for dean nary angiogram tomorrow. Continue aspirin and to hold the Lovenox after the evening dose tonight. SR/MODL Voice ID: [id number] Report ID: [id number]
--- NOTE | 2021-06-23 12:13 | P.PN ---
Subjective Date of Service: 06/23/21 Chief Complaint: Nausea and vomiting Patient has no new complaint. He denies any chest pain. Physical Examination - Vital Signs Temperature: 97.6 F Blood Pressure: 137/81 Pulse: 55 Respirations: 17 Pulse Ox (%): 92 Assessment And Plan - Current Problems (Diagnosis) (1) Elevated troponin Current Visit: Yes Status: Acute (2) Nausea and vomiting Current Visit: Yes Status: Acute (3) Food poisoning Current Visit: Yes Status: Acute (4) Coronary artery disease Current Visit: Yes Status: Acute - Plan Physical examination General: In no apparent distress, Oriented x3 HEENT: Mucous membr. moist/pink Neck: JVD not distended Respiratory: Clear to auscultation bilaterally, Normal air movement Cardiovascular: No edema, Regular rate/rhythm, Normal S1 S2 Gastrointestinal: Soft and benign, Non-distended Musculoskeletal: No swelling Integumentary: No rashes, No erythema Neurological: Normal strength at 5/5 x4 extr Echocardiogram demonstrates moderate to severe mitral regurgitation. Nuclear stress test report moderate stress-induced ischemia. Dr. Livingston informed of the stress test result. Dr. Livingston recommend cardiac catheterization on Thursday. Continue metoprolol and aspirin. Continue full dose Lovenox. Hold Lovenox tonight. Statins. Monitor and optimize electrolytes.
[2021-06-23] MEDS: ATORVASTATIN 20 MG TAB PO SCH (21:44)
--- NOTE | 2021-06-24 08:37 | TREADPHA ---
DX: ELEVATED TROPONIN Date of Study: 06/21/2021 Ht: 5' 7 " Wt: 164 lb 15.903 oz Consulting Physician: SANDRA MEDICATIONS: ASPIRIN, LOVENOX, LOPRESSOR, NITROSTAT, APRESOLINE HISTORY: 56 YEAR OLD MALE WITH COMPLIANTS OF NAUSEA AND VOMITING. HISTORY OF SMOKING, NO OTHER HISTTORY. PATIENT STATES NO KNOWN DRUG ALLERIGIES. PHYSICIAL EXAMINATION: RESTING B.P.: 152/84 RESTING H.R.: 58 RESTING EKG: NORMAL SINUS RHYTHM, RIGHT BUNDLE BRANCH BLOCK PROTOCOL: PHARMACOLOGIC EXERCISE TIME: 3:30 B.P. AT PEAK STRESS: 171/84 80 BPM IMPRESSION: LEXISCAN INJECTED. CARDIOLITE INJECTED. SEE NUCLEAR MEDICINE REPORT. NO CHEST PAIN, SUPRAVENTRICULAR TACHYCARDIA, VENTRICULAR TACHYCARDIA, PREMATURE ATRIAL COMPLEXES, PREMATURE VENTRICULAR COMPLEXES NOTED. NO EKG CHANGES WITH LEXISCAN.
[2021-06-24] MEDS: ASPIRIN EC 81 MG TAB PO SCH (09:00)
[2021-06-24] MEDS: METOPROLOL TAR 50 MG TAB PO SCH (09:00)
--- NOTE | 2021-06-24 12:04 | P.DS ---
Admission Date: 06/20/21 Discharge Date: 06/24/21 Disposition: ROUTINE DISCHARGE Discharge Condition: FAIR Reason for Admission: Nausea and vomiting - Problems (1) Elevated troponin Current Visit: Yes Status: Acute (2) Nausea and vomiting Current Visit: Yes Status: Acute (3) Food poisoning Current Visit: Yes Status: Acute (4) Coronary artery disease Current Visit: Yes Status: Acute Brief History of Present Illness: -year-old gentleman with no known past medical history presented to the emergency department with a complaint of nausea and vomiting which started last night. Patient states he ate a meal of noodles and pork chops at his friend's house. Several hours later experienced nausea and he started vomiting. He vomited a few times yesterday and a couple of times today at work. He presented to the emergency department where blood work is unremarkable except elevated troponin. Patient reports recent ED fatigability over the past few weeks. EKG shows no ischemic changes. Chest x-ray shows no acute changes. His sister has a history of carotid artery disease, no known heart disease in the family. The nausea and vomiting resolved in the ED. Patient hospitalized for further management. Hospital Course: Patient admitted to the medical floor for NSTEMI and treated with full dose Lovenox. His troponin level trended down. Patient was asymptomatic. She was seen and evaluated by cardiology-Dr. Livingston who recommended stress test. Stress test reported lateral wall moderate reversible ischemia. Dr. Livingston recommended cardiac catheterization which was performed today. Noted. Patient deemed stable for discharge. Patient discharged with aspirin, Lipitor. He is informed to follow-up with cardiology post cardiac cath. Vital Signs/Physical Exam: Temp Pulse Resp BP Pulse Ox 97.4 F 55 18 122/81 96 06/24/21 08:00 06/24/21 09:00 06/24/21 08:00 06/24/21 09:00 06/24/21 08:00 General: Alert, In no apparent distress, Oriented x3 HEENT: Mucous membr. moist/pink Neck: JVD not distended Respiratory: Clear to auscultation bilaterally, Normal air movement Cardiovascular: No edema, Regular rate/rhythm, Normal S1 S2 Gastrointestinal: Soft and benign, Non-distended Musculoskeletal: No swelling Neurological: Normal strength at 5/5 x4 extr Laboratory Data at Discharge: WBC 4.40 K/uL (4.3-10.9) D 06/23/21 04:16 Hgb 13.2 g/dL (13.6-17.9) L 06/23/21 04:16 Hct 40.5 % (39.6-49.0) 06/23/21 04:16 Plt Count 161 K/uL (152-406) 06/23/21 04:16 PT 11.9 SECONDS (9.5-12.5) 06/19/21 12:41 INR 1.03 06/19/21 12:41 Sodium 137 mmol/L (136-145) 06/23/21 04:16 Potassium 4.3 mmol/L (3.5-5.1) 06/23/21 04:16 BUN 12 mg/dL (7-18) 06/23/21 04:16 Creatinine 0.93 mg/dL (0.55-1.3) 06/23/21 04:16 Glucose 99 mg/dL (74-106) 06/23/21 04:16 Magnesium 2.3 mg/dL (1.8-2.4) 06/19/21 12:41 Total Bilirubin 0.6 mg/dL (0.2-1.0) 06/19/21 12:41 AST 74 U/L (15-37) H 06/19/21 12:41 ALT 69 U/L (12-78) 06/19/21 12:41 Alkaline Phosphatase 69 U/L (45-117) 06/19/21 12:41 Triglycerides 91 mg/dL (<150) 06/20/21 03:18 Cholesterol 162 mg/dL (<200) 06/20/21 03:18 HDL Cholesterol 68 mg/dL (40-60) H 06/20/21 03:18 Cholesterol/HDL Ratio 2.38 06/20/21 03:18 Home Medications: Aspirin [Aspirin EC 81 MG] 81 mg PO DAILY #30 tablet. 06/24/21 Atorvastatin Calcium [Lipitor*] 20 mg PO BEDTIME #30 tab 06/24/21 New Medications: Aspirin [Aspirin EC 81 MG] 81 mg PO DAILY #30 tablet. Atorvastatin Calcium [Lipitor*] 20 mg PO BEDTIME #30 tab Diet: AHA Activity: Ad liset Followup: NONE,NONE [Primary Care Provider] - 1-2 Weeks Giovani Livingston MD [ACTIVE - CAN ADMIT] - 1 Week
--- NOTE | 2021-06-24 12:08 | P.PN ---
Subjective Date of Service: 06/24/21 Chief Complaint: Nausea and vomiting Patient has no complaint. He denies any chest pain. He is scheduled for cardiac catheterization today. Physical Examination - Vital Signs Temperature: 97.4 F Blood Pressure: 122/81 Pulse: 55 Respirations: 18 Pulse Ox (%): 96 Assessment And Plan - Current Problems (Diagnosis) (1) Elevated troponin Current Visit: Yes Status: Acute (2) Nausea and vomiting Current Visit: Yes Status: Acute (3) Food poisoning Current Visit: Yes Status: Acute (4) Coronary artery disease Current Visit: Yes Status: Acute - Plan Physical examination General: NAD, Oriented x3 HEENT: Mucous membr. moist/pink Neck: JVD not distended Respiratory: Clear to auscultation bilaterally, Normal air movement Cardiovascular: No edema, Regular rate/rhythm, Normal S1 S2 Gastrointestinal: Soft and benign, Non-distended Musculoskeletal: No swelling Integumentary: No rashes, No erythema Neurological: Normal strength at 5/5 x4 extr Echocardiogram demonstrates moderate to severe mitral regurgitation. Nuclear stress test report moderate stress-induced ischemia. Patient scheduled for cardiac catheterization today. Continue metoprolol and aspirin. Statins.
[2021-06-24] MEDS ORDERED: LIDOCAINE 1% 20 ML MDV ONE (13:40)
[2021-06-24] MEDS ORDERED: HEPARIN 5000 UNIT/ML 1 ML VIAL ONE (13:40)
[2021-06-24] MEDS ORDERED: VERAPAMIL HCL 10 MG/4 ML VIAL IV ONE (13:40)
[2021-06-24] MEDS ORDERED: ATROPINE SULF 1 MG/10 ML SYR IV ONE (13:42)
[2021-06-24] MEDS ORDERED: NITROGLYCERIN 100 MCG/ML SYR (for cath lab use only) IV ONE (13:42)
[2021-06-24] MEDS ORDERED: FENTANYL CITR 100 MCG/2 ML ONE (13:43)
[2021-06-24] MEDS ORDERED: MIDAZOLAM HCL 2 MG/2 ML INJ ONE (13:43)
--- NOTE | 2021-06-24 14:46 | PN ---
Date of Progress Note: 06/24/2021 Subjective: Seen by bedside. No further pain. The patient is completely asymptomatic. Review of Systems: No chest pain, shortness of breath. No cough. No nausea, vomiting, diarrhea, abdominal pain. No dy suria, pyuria, or urgency. All other systems reviewed and are negative. Physical Examination: Vital Signs: Reviewed. Head and Neck: Pupils are equal, reactive to light. Intact eye movements. No JVD. No cervical lym phadenopathy. Neck is supple. Thyroid is not enlarged. Lungs: Clear to auscultation bilaterally. No rhonchi, rales, or crackles. No accessory muscle use. Heart: Regular rate and rhythm. No extra sounds. Abdomen: Soft, nontender. Bowel sounds positive. No organomegaly. No masses or hernia. No rigidi ty or rebound. Extremities: No edema, clubbing, cyanosis. Intact pulses. Skin: No rashes. Neurologic: Alert, awake, oriented x3. No acute focal deficits appreciated. Vital Signs: Temperature is 97.4, pulse 55, breathing at 18, blood pressure 122/81. Assessment And Recommendations: Non-ST elevation myocardial infarction with abnormal stress test. P adriano for coronary angiogram today. Continue aspirin and we will load with Plavix during the procedure if indicated. SR/MODL Voice ID: [id number] Report ID: [id number]
[2021-06-24 15:37] VITALS: TEMP 97.8
[2021-06-24 16:29] VITALS: BP 129/69; O2SAT 98
--- NOTE | 2021-06-25 01:37 | OP ---
Date of Procedure: 06/24/2021 Surgeon: VERENA GARCIA Procedure Performed: Selective coronary angiogram. Access: Right radial artery 6-Cuban, closed with TR band. Complications: None. Description Of Procedure: After risks, benefits, and alternatives were explained, the patient agreed to proceed and signed informed consent. The patient was brought into the cardiac catheterization la boratory, prepped and draped in usual sterile fashion. We accessed the right radial artery using ped iatric micropuncture kit and then placed a 6-Cuban slender sheath and took a 5-Cuban [place] 4.0 cath eter into aortic root, engaged left main and the right coronary artery, took standard views and then removed the catheter and sheath was removed, placed TR band with good hemostasis. Findings: 1.Left main: Large and normal. 2.LAD: Very large vessel with proximal to mid 70% stenosis, heavily calcified, and gives collateral s to the new totally occluded circ and to totally occluded RCA. 3.Left circumflex: Ostial 95% to 99% with collaterals from the LAD. 4.RCA: Proximal SUPERVISOR LIME with collaterals from the LAD. Conclusion: Severe multivessel disease as outlined above. Recommendation: Outpatient evaluation for coronary artery bypass surgery. If the patient is not a c andidate, then multivessel PCI will be recommended. SR/MODL Voice ID: [id number] Report ID: [id number]
== END 2021-06-24 19:00 | disposition home or self-care (01) | DRG 282 ==
LOC: ER 11:28 → ERHOLD 16:58 → OBSVTOIN 06-20 14:22 → 2ND 06-20 17:02
PROVIDERS: ADMIT Internal Medicine; ATTEND Internal Medicine
PROC: B201YZZ Plain Radiography of Multiple Coronary Arteries using Other Contrast (ICD-10-PCS; principal; 2021-06-24)
DX: I21.4 Non-ST elevation (NSTEMI) myocardial infarction (principal); I25.10 Atherosclerotic heart disease of native coronary artery without angina pectoris; A05.9 Bacterial foodborne intoxication, unspecified; I34.0 Nonrheumatic mitral (valve) insufficiency; F17.210 Nicotine dependence, cigarettes, uncomplicated; Z20.822 Contact with and (suspected) exposure to COVID-19
CPT/HCPCS: 36415; 70450; 71045; 78452; 80048; 80061; 80076; 81003; 81015; 83735; 83880; 84484; 85025; 85610; 93005; 93017; 93306; 93454; 96374; 99284; A9500; C1893; G0378; J0360; J1644; J2250; J2405; J2785; J3010; J7030; J8597; U0003